=== PATIENT | female | born 1940 | race Caucasian/White ===

== ENCOUNTER 2023-03-31 21:52 | Emergency (ER) | payer MEDICARE, BC, SELFPAY ==
--- NOTE | 2023-03-31 21:56 | XR_ITS ---
The [place] [id number] Patient Name: IGNACIO SHIELDS MRN: [id number] date: 1940 Sex: F Assigned Patient Location: ER Current Patient Location: ED.MAIN Accession/Order Number: [id number] Exam Date: 03/31/2023 22:20 Report Date: 03/31/2023 22:44 At the request of: TEDDY MARKER Procedure: XR hand LT min 3V XR forearm LT 2V, XR hand LT min 3V 03/31/2023 10:20 PM EST CLINICAL INDICATION: Trauma with concern for foreign body COMPARISON: None. TECHNIQUE: 2 views of the left forearm. 3 views of left hand.. FINDINGS: Left forearm The bones are intact. The alignment is anatomic. There are degenerative changes of the joints. The soft tissue are grossly unremarkable. No radiopaque foreign body is identified. Bandaging is noted. Left hand The bones are intact. The alignment is anatomic. There are degenerative changes of the joints. The soft tissues are grossly unremarkable. No radiopaque foreign body is identified. XR/XR hand LT min 3V IMPRESSION: No acute osseous abnormality of the left forearm or left hand. No radiopaque foreign body is identified. Electronically authenticated by: JONI JHAVERI Date: 03/31/2023 22:44
--- NOTE | 2023-03-31 21:56 | XR_ITS ---
The [address] [address] Patient Name: GINACIO SHIELDS MRN: [id number] date: 1940 Sex: F Assigned Patient Location: ER Current Patient Location: ED.MAIN Accession/Order Number: [id number] Exam Date: 03/31/2023 22:20 Report Date: 03/31/2023 22:44 At the request of: TEDDY MARKER Procedure: XR forearm LT 2V XR forearm LT 2V, XR hand LT min 3V 03/31/2023 10:20 PM EST CLINICAL INDICATION: Trauma with concern for foreign body COMPARISON: None. TECHNIQUE: 2 views of the left forearm. 3 views of left hand.. FINDINGS: Left forearm The bones are intact. The alignment is anatomic. There are degenerative changes of the joints. The soft tissue are grossly unremarkable. No radiopaque foreign body is identified. Bandaging is noted. Left hand The bones are intact. The alignment is anatomic. There are degenerative changes of the joints. The soft tissues are grossly unremarkable. No radiopaque foreign body is identified. XR/XR forearm LT 2V IMPRESSION: No acute osseous abnormality of the left forearm or left hand. No radiopaque foreign body is identified. Electronically authenticated by: JONI JHAVERI Date: 03/31/2023 22:44
[2023-03-31 22:16] LABS: Basophils Absolute Auto 0.1 10^3/uL (0.0-0.1); Basophils Percent Auto 0.7 % (0.2-2.0); Eosinophils Absolute Auto 0.3 10^3/uL (0.0-0.7); Eosinophils Percent Auto 2.4 % (0.9-7.0); Hematocrit 40.8 % (36.0-48.0); Hemoglobin 13.4 g/dL (12.0-16.0); Immature Granulocytes Abs Auto 0.04 10^3/uL (0.00-0.03); Immature Granulocytes Pct Auto 0.3 % (0.0-0.5); Lymphocytes Absolute Auto 3.4 10^3/uL (1.2-3.8); Lymphocytes Percent Auto 28.2 % (20.5-60.0); Mean Corpuscular HGB Conc 32.8 g/dL (29.9-35.2); Mean Corpuscular Hemoglobin 29.8 pg (26.7-34.0); Mean Corpuscular Volume 90.7 fL (81.0-99.0); Mean Platelet Volume 9.9 fL (9.5-13.5); Monocytes Absolute Auto 1.1 10^3/uL (0.3-0.8); Neutrophils Absolute Auto 7.1 10^3/uL (1.4-6.5); Neutrophils Percent Auto 59.4 % (43.0-75.0); Platelet Count 402 10^3/uL (150-450); Red Cell Distribution Width 13.5 % (11.0-15.0)
[2023-03-31] MEDS: ONDANSETRON PF 4 MG/2 ML VIAL IV (22:22)
[2023-03-31] MEDS: MORPHINE SULFATE 4 MG/ML VIAL IV (22:22)
[2023-03-31] MEDS: 0.9 % SODIUM CHLORIDE 1,000 ML 1000 ML IV (22:27)
[2023-03-31 22:34] VITALS: BP 161/111; PULSE 102; RESP 18; O2SAT 97
--- NOTE | 2023-03-31 22:45 | ED.WOUNDLAC1 ---
HPI - Wound/Laceration General Chief Complaint: Wound/Laceration Stated Complaint: Laceration Time Seen by Provider: 03/31/23 21:56 Source: patient and family () Mode of arrival: Wheelchair History of Present Illness HPI narrative: This 83-year-old female her . is the chief historian. He states that she was up in the bathroom and he heard her yelling for him. She into the bathroom to use the bathroom and apparently slipped and caught her left forearm on a glass vase that held toilet paper. The states that the glass face which shattered and she had sustained a approximately 15 cm laceration to the medial aspect of her left forearm. He applied a tourniquet and brought her to the emergency department. In the emergency department she was pale and sweaty upon arrival with nausea and one episode of vomiting. Bleeding was controlled. Related Data Allergies Allergy/AdvReac Type Severity Reaction Status Date / Time No Known Drug Allergies Allergy Verified 03/31/23 22:01 Review of Systems ROS Status of ROS 10 or more systems reviewed and unremarkable except as noted in history and below PFSH [facility] Social History Smoking status: Never smoker Exam Narrative Exam Narrative: Nurses note and vital signs reviewed and patient is not hypoxic. General: Pale, sweaty elderly female, no respiratory distress Skin: Pale, diaphoretic Head: Normocephalic, atraumatic Eye: Normal conjunctiva, no drainage, EOMI. PERRL Ears, Nose, Mouth, and Throat: oral mucosa is moist. Cardiovascular: Regular Rate and Rhythm, tachycardia at 102 at triage Respiratory: Patient is in no distress, no accessory muscle use, lungs are clear to auscultation, no wheezing, rales or rhonchi Back: non-tender, no CVA tenderness bilaterally to percussion. GI: Normal bowel sounds, no tenderness to palpation, no masses appreciated. No rebound, guarding, or rigidity noted. Musculoskeletal: 11.5 cm elliptical laceration to the medial aspect of the left forearm, mild active bleeding, Proximal phalanx of the left 5th finger is bruised and tender. Patient is able to approximate thumb and all fingers. Distal sensation is intact. Radial pulse is brisk. There is no pulsatile bleeding from the laceration. Neurological: A&O x4, normal speech Psychiatric: Cooperative Constitutional Vital Signs, click to edit/add: Last Vital Signs Pulse 66 03/31/23 23:44 Resp 14 03/31/23 23:44 BP 142/71 H 03/31/23 23:44 Pulse Ox 95 03/31/23 23:44 O2 Del Method Room Air 03/31/23 23:44 Course Vital Signs Vital signs: Vital Signs Pulse Rate 102 H 03/31/23 22:34 Respiratory Rate 18 03/31/23 22:34 Blood Pressure 161/111 H 03/31/23 22:34 Pulse Oximetry 97 03/31/23 22:34 Oxygen Delivery Method Room Air 03/31/23 22:34 Pulse Rate 66 03/31/23 23:44 Respiratory Rate 14 03/31/23 23:44 Blood Pressure 142/71 H 03/31/23 23:44 Pulse Oximetry 95 03/31/23 23:44 Oxygen Delivery Method Room Air 03/31/23 23:44 MDM - Wound/Laceration MDM Narrative Medical decision making narrative: Procedure note: Laceration repair Patient's wound edges were infiltrated with 1 percent lidocaine. When anesthesia was obtained the wound was irrigated with copious normal saline. Clots were removed. The wound was inspected to the base. There was a laceration through the skin and subcutaneous tissue and some muscle but there is no visible tendon injury. X-ray of the extremity does not show any fracture or foreign body. A running stitch of 4-0 Vicryl was placed to approximate the subcutaneous tissues and muscle. 22, 3-0 Ethilon sutures are placed into the laceration with good wound edge approximation. The tourniquet was removed and there was no active bleeding or pulsatile bleeding. A bacitracin dressing and pressure dressing was applied by the nursing staff. Patient remains neurovascularly intact. Her CBC with differential shows that hemoglobin 13.4. The patient will be discharged home with a prescription for Keflex after receiving IV Ancef in the emergency department with recommendation for a wound check in 24-48 hours. The patient does not have a family physician and will be given the names of local physicians accepting new patients. Medical Records Medical records narrative: The [address] [address] XRay Report Signed Patient: IGNACIO SHIELDS MR#: [id number] : 1940 Acct:[id number] Age/Sex: 83 / F ADM Date: 03/31/23 Loc: ER Attending Dr: Ordering Physician: Shanita Viramontes Date of Service: 03/31/23 Procedure(s): XR forearm LT 2V Accession Number(s): [id number] cc: Cheyanne Walters M.D.; Shanita Marker~ The [address] [address] Patient Name: IGNACIO SHIELDS MRN: [id number] date: 1940 Sex: F Assigned Patient Location: ER Current Patient Location: ED.MAIN Accession/Order Number: [id number] Exam Date: 03/31/2023 22:20 Report Date: 03/31/2023 22:44 At the request of: SHANITA VIRAMONTES Procedure: XR forearm LT 2V XR forearm LT 2V, XR hand LT min 3V 03/31/2023 10:20 PM EST CLINICAL INDICATION: Trauma with concern for foreign body COMPARISON: None. TECHNIQUE: 2 views of the left forearm. 3 views of left hand.. FINDINGS: Left forearm The bones are intact. The alignment is anatomic. There are degenerative changes of the joints. The soft tissue are grossly unremarkable. No radiopaque foreign body is identified. Bandaging is noted. Left hand The bones are intact. The alignment is anatomic. There are degenerative changes of the joints. The soft tissues are grossly unremarkable. No radiopaque foreign body is identified. XR/XR forearm LT 2V IMPRESSION: No acute osseous abnormality of the left forearm or left hand. No radiopaque foreign body is identified. Electronically authenticated by: JONI JHAVERI Date: 03/31/2023 22:44 Lab Data Labs: Lab Results 03/31/23 Range/Units 22:00 WBC 12.0 H (4.0-11.0) 10^3/uL RBC 4.50 (4.20-5.40) 10^6/uL Hgb 13.4 (12.0-16.0) g/dL Hct 40.8 (36.0-48.0) % MCV 90.7 (81.0-99.0) fL MCH 29.8 (26.7-34.0) pg MCHC 32.8 (29.9-35.2) g/dL RDW 13.5 (11.0-15.0) % Plt Count 402 (150-450) 10^3/uL MPV 9.9 (9.5-13.5) fL Neut % (Auto) 59.4 (43.0-75.0) % Lymph % (Auto) 28.2 (20.5-60.0) % [place] % (Auto) 9.0 (1.7-12.0) % Eos % (Auto) 2.4 (0.9-7.0) % Baso % (Auto) 0.7 (0.2-2.0) % Neut # (Auto) 7.1 H (1.4-6.5) 10^3/uL Lymph # (Auto) 3.4 (1.2-3.8) 10^3/uL [place] # (Auto) 1.1 H (0.3-0.8) 10^3/uL Eos # (Auto) 0.3 (0.0-0.7) 10^3/uL Baso # (Auto) 0.1 (0.0-0.1) 10^3/uL Abs Immat Gran (auto) 0.04 H (0.00-0.03) 10^3/uL Imm/Tot Granulo (auto) 0.3 (0.0-0.5) % Discharge Plan Discharge Chief Complaint: Wound/Laceration Clinical Impression: Laceration Patient Disposition: Home, Self-Care Time of Disposition Decision: 00:02 Condition: Good Instructions: Care For Your Stitches (ED) Additional Instructions: Keep arm clean and dry and covered with a dressing. You should have a wound check in the next 24-48 hours. Return to the emergency department or follow-up with family medicine for a wound check. Use antibiotics as directed. Return to emergency department for severe pain, fever redness or signs of infection. Sutures can be removed in 10-14 days. Stand Alone Forms: Portal Instructions Referrals: Cheyanne Walters MD [Primary Care Provider] - 1 week
[2023-03-31] MEDS: CEFAZOLIN SODIUM/DEXTROSE,ISO 1 GM/50 ML IV.SOLN IV (23:07)
[2023-03-31] MEDS: ADACEL DIPH,PERTUSS(ACELL),TET VAC/PF 0.5 ML ADULT SYRINGE IM (23:41)
[2023-03-31] MEDS: LIDOCAINE HCL 1% 100 MG/10 ML MDV 20 ML INJ (23:41)
[2023-03-31 23:44] VITALS: BP 142/71; PULSE 66; RESP 14; O2SAT 95
[2023-04-01] MEDS: WATER FOR IRRIGATION, STERILE 1,000 ML IRRIG.SOLN 1000 ML IRR (00:43)
[2023-04-01] MEDS: BACITRACIN OINTMENT 28.4 GM TUBE 1 APPLIC TOPICAL (00:44)
--- NOTE | 2023-04-01 00:46 | PC.NURSE ---
After wound is completely sutured by Dr. Viramontes, the sutured laceration is cleansed, and all of the skin around the wound is cleansed as well. There is no bleeding at this time. Pulses remain in tact, patient is able to move all digits independently as well as together. A pressure dressing is applied to the wound after antibiotic ointment is applied. Non stick dressing first, followed by ABD, then Kerlix, finally hawa wrap. Patient and are educated on the need to have the wound re checked in 24-48 hours. Neither of them have a PCP, so they know to call the local providers on the list that was provided to them and try to get her in to someone, but if she is not able to get into anyone, she is to return to the ED to have the wound rechecked and redressed. They both voice agreement.
== END 2023-04-01 00:50 | disposition home or self-care (01) ==
PROVIDERS: Emergency Provider Emergency Medicine; PCP Specialist
DX: S51.812A Laceration without foreign body of left forearm, initial encounter (principal); W45.8XXA Other foreign body or object entering through skin, initial encounter; Z23 Encounter for immunization
CPT/HCPCS: 36415; 73090; 73130; 85025; 90471; 90715; 96361; 96365; 96375; 99284; J0690; J2270; J2405